=== PATIENT | female | born 1975 | race African-American/Black ===

== ENCOUNTER 2018-06-17 22:12 | Emergency (ER) | payer SELFPAY ==
[~2018-06-17] VITALS: Ht 160 cm; Wt 109.0 kg
[2018-06-17] MEDS ORDERED: IBUPROFEN 600MG TABLET PO ONE (23:00)
[2018-06-17] MEDS ORDERED: HYDROCHLOROTHIAZIDE 25MG TABLET PO ONE (23:30)
[2018-06-18 00:32] VITALS: BP 187/112
== END 2018-06-18 00:36 | disposition home or self-care (01) ==
LOC: ER 22:12
DX: J32.9 Chronic sinusitis, unspecified (principal); I10 Essential (primary) hypertension; R00.0 Tachycardia, unspecified
CPT/HCPCS: 71045; 93005; 99284

== ENCOUNTER 2018-07-06 14:27 | Emergency (ER) | payer SELFPAY ==
[~2018-07-06] VITALS: Ht 167.6 cm; Wt 105.0 kg
[2018-07-06 22:00] VITALS: BP 127/89
== END 2018-07-06 22:00 | disposition home or self-care (01) ==
LOC: ER 14:27
DX: S62.394A Other fracture of fourth metacarpal bone, right hand, initial encounter for closed fracture (principal); W22.8XXA Striking against or struck by other objects, initial encounter; Y93.89 Activity, other specified; Y92.89 Other specified places as the place of occurrence of the external cause; R03.0 Elevated blood-pressure reading, without diagnosis of hypertension
CPT/HCPCS: 29125; 73130; 99284; A4565

== ENCOUNTER 2019-02-23 10:05 | Emergency (ER) | payer MEDICAID ==
[~2019-02-23] VITALS: Ht 160 cm; Wt 118.0 kg
[2019-02-23] MEDS ORDERED: HYDR12.529 PO (10:10)
[2019-02-23] MEDS ORDERED: KETOROLAC 30MG/ML VIAL IV STA (11:16)
[2019-02-23] MEDS ORDERED: SODIUM CHLORIDE 0.9% 1,000 ML IV ONE (11:16)
[2019-02-23 11:42] LABS: BASOPHILS % 0.3 % (0.0-2.0); HEMOGLOBIN. 11.8 g/dL (12.0-16.0); LYMPHOCYTES % 15.6 % (20.0-50.0); MEAN CORPUSCULAR HEMOGLOBIN 26.4 pg (28.0-32.0); MEAN CORPUSCULAR VOLUME 80.5 fL (81.0-99.0); MEAN PLATELET VOLUME 6.8 fl (7.4-10.4); MONOCYTES % 5.8 % (2.0-8.0); NEUTROPHILS % 78.3 % (40.0-76.0); PLATELET 265 x1000/uL (130-400); RED BLOOD CELL COUNT 4.47 mill/uL (4.2-5.4); RED CELL DISTRIBUTION WIDTH 15.7 % (11.6-14.6)
[2019-02-23 11:48] LABS: CHLORIDE 105 mEq/L (98-107)
[2019-02-23 11:55] LABS: INR 1.1
[2019-02-23 12:08] LABS: CLARITY URINE CLEAR (CLEAR); COLOR URINE YELLOW (YELLOW); KETONES URINE 1+ (NEGATIVE); LEUKOCYTE ESTERASE URINE NEGATIVE (NEGATIVE); NITRITE URINE NEGATIVE (NEGATIVE); OCCULT BLOOD URINE NEGATIVE (NEGATIVE); PH URINE 7.5 (4.5-8.0); PROTEIN URINE NEGATIVE (NEGATIVE)
[2019-02-23] MEDS ORDERED: IOHEXOL-350 100 ML BOTTLE ONE (14:41)
[2019-02-23] MEDS ORDERED: HYDROCHLOROTHIAZIDE 25MG TABLET PO ONE (15:15)
[2019-02-23 15:30] VITALS: BP 178/91
== END 2019-02-23 16:01 | disposition home or self-care (01) ==
LOC: ER 10:05
DX: I10 Essential (primary) hypertension (principal); R10.9 Unspecified abdominal pain; J45.909 Unspecified asthma, uncomplicated; Z86.73 Personal history of transient ischemic attack (TIA), and cerebral infarction without residual deficits
CPT/HCPCS: 36415; 71275; 74174; 80053; 81003; 81025; 83690; 85025; 85610; 96374; 99284; J1885; J7030; Q9967

== ENCOUNTER 2020-02-11 02:21 | Emergency (ER) | payer MEDICAID ==
[~2020-02-11] VITALS: Ht 160 cm; Wt 105.0 kg
[~2020-02-11 02:21] MED LIST: HYDR12.529 PO
[2020-02-11 03:25] LABS: CLARITY URINE CLEAR (CLEAR); COLOR URINE YELLOW (YELLOW); KETONES URINE 1+ (NEGATIVE); LEUKOCYTE ESTERASE URINE TRACE (NEGATIVE); NITRITE URINE NEGATIVE (NEGATIVE); OCCULT BLOOD URINE NEGATIVE (NEGATIVE); PROTEIN URINE NEGATIVE (NEGATIVE); SPECIFIC GRAVITY URINE 1.016 (1.005-1.030); UROBILINOGEN URINE 0.2 E.U./dL (0.2-1.0)
[2020-02-11 03:26] LABS: BASOPHILS % 0.5 % (0.0-2.0); EOSINOPHILS % 0.5 % (0.0-5.0); HEMATOCRIT. 37.3 % (36.0-48.0); HEMOGLOBIN. 12.6 g/dL (12.0-16.0); LYMPHOCYTES % 31.7 % (20.0-50.0); MEAN CORPUSCULAR HEMOGLOBIN 27.6 pg (28.0-32.0); MEAN CORPUSCULAR VOLUME 82.2 fL (81.0-99.0); MEAN PLATELET VOLUME 7.2 fl (7.4-10.4); MONOCYTES % 7.9 % (2.0-8.0); NEUTROPHILS % 59.4 % (40.0-76.0); PLATELET 265 x1000/uL (130-400); RED BLOOD CELL COUNT 4.54 mill/uL (4.2-5.4); RED CELL DISTRIBUTION WIDTH 15.8 % (11.6-14.6)
[2020-02-11 03:28] LABS: CHLORIDE 101 mEq/L (98-107)
[2020-02-11] MEDS ORDERED: KETOROLAC 30MG/ML VIAL IV ONE (05:00)
[2020-02-11 05:41] VITALS: BP 155/89
== END 2020-02-11 05:46 | disposition home or self-care (01) ==
LOC: ER 02:33
DX: R07.89 Other chest pain (principal); N30.00 Acute cystitis without hematuria; I10 Essential (primary) hypertension; Z98.890 Other specified postprocedural states
CPT/HCPCS: 36415; 71045; 80053; 81003; 81025; 85025; 93005; 96374; 99285; J1885